=== PATIENT | male | born 1945 | race American Indian/Alaskan Native ===

== ENCOUNTER 2020-02-22 08:24 | Day surgery (SDC) | payer MEDICARE ==
[2020-02-21 09:26] LABS: Hematocrit 40.4 % (35.5-45.6); Mean Corpuscular HGB Conc 35 % (32-34); Mean Corpuscular Volume 93 fl (84-94); Platelet Count 245 K/mm3 (140-440); Red Blood Count 4.36 M/mm3 (3.65-5.03); Red Cell Distribution Width 13.7 % (13.2-15.2)
[2020-02-21 09:41] LABS: Alanine Aminotransferase 14 units/L (7-56); Albumin 3.9 g/dL (3.9-5); BUN/Creatinine Ratio 14; Blood Urea Nitrogen 13 mg/dL (9-20); Calcium 9.9 mg/dL (8.4-10.2); Hemolysis Index 19
[~2020-02-22 08:24] MED LIST: WATER FOR IRRIG STERILE 2000 ML IR ONE; ceFAZolin/STERILE WATER 2 GM/20 ML SYRINGE IV NR
--- NOTE | 2020-02-22 09:02 | Anesthesia Day of Surgery ---
Anesthesia Day of Surgery - Day of Surgery Patient Examined: Yes Patient H&P Reviewed: Yes Patient is NPO: Yes
--- NOTE | 2020-02-22 09:04 | Anesthesia Consultation ---
Anesthesia Consult and Med Hx Date of service: 02/22/20 - Airway Anesthetic Teeth Evaluation: Good, Dentures (Upper), Edentulous (Upper) ROM Head & Neck: Adequate Mental/Hyoid Distance: Adequate Mallampati Class: Class I Intubation Access Assessment: Good - Pre-Operative Health Status ASA Pre-Surgery Classification: ASA3 Proposed Anesthetic Plan: General - Pulmonary Hx Smoking: Yes (STOPPED X 30 YRS) Hx Respiratory Symptoms: No (+2FS) Hx Sleep Apnea: Yes (TALI PRE SCREEN HIGH RISK; Needs sleep study) - Cardiovascular System Hx Hypertension: Yes (2018) Hx Coronary Artery Disease: No (Pt reports negative NST in November 2019) Hx Cardia Arrhythmia: Yes - Central Nervous System Hx Neuromuscular Disorder: Yes (Migraines) Hx Psychiatric Problems: Yes (Anxiety) - Endocrine Hx Liver Disease: No Hx Non-Insulin Dependent Diabetes: No Hx Thyroid Disease: No - Hematic Hx Sickle Cell Disease: No - Other Systems Hx Cancer: No
[2020-02-22] MEDS ORDERED: LACTATED RINGERS 1,000 ML IV SCH (09:11)
[2020-02-22] MEDS ORDERED: HYDROmorphone 1 MG/1 ML INJ IV PRN ×2 (09:16)
[2020-02-22] MEDS ORDERED: ONDANSETRON 4 MG/2 ML INJ IV PRN (09:16)
[2020-02-22] MEDS ORDERED: PHENYLEPHRINE/NS 1,000 MCG/10 ML SYRINGE (OR USE) IV ONE (09:47)
[2020-02-22] MEDS ORDERED: fentaNYL 100 MCG/2 ML INJ ONE ×2 (09:47→10:52)
[2020-02-22] MEDS ORDERED: LIDOCAINE MPF (2%) 20 MG/1 ML VIAL 5 ML ONE (09:47)
[2020-02-22] MEDS ORDERED: GLYCOPYRROLATE 0.4 MG/2 ML INJ ONE (09:47)
[2020-02-22] MEDS ORDERED: ONDANSETRON 4 MG/2 ML INJ ONE (09:47)
[2020-02-22] MEDS ORDERED: dexAMETHasone 20 MG/5 ML VIAL ONE (09:47)
[2020-02-22] MEDS ORDERED: propofoL 200 MG/20 ML VIAL IV ONE (09:48)
[2020-02-22] MEDS ORDERED: MIDAZOLAM 2 MG/2 ML INJ IV SCH (10:00)
[2020-02-22] MEDS ORDERED: WATER FOR IRRIG STERILE 2000 ML IR ONE (10:27)
[2020-02-22] MEDS ORDERED: IOHEXOL 300 MG/ML 50ML IV ONE (10:32)
[2020-02-22] MEDS ORDERED: hydrALAZINE 20 MG/1 ML INJ ONE (11:07)
--- NOTE | 2020-02-22 11:18 | Short Stay Summary ---
Short Stay Documentation Date of service: 02/22/20 - History H&P: obtained from office - Allergies and Medications Current Medications: Allergies No Known Allergies Allergy (Verified 02/15/20 14:58) Home Medications Medication Instructions Recorded Confirmed Last Taken Type ALPRAZolam [Xanax TAB] 0.25 mg PO QHS PRN 02/15/20 02/15/20 Unknown History Benazepril HCl [Lotensin] 30 mg PO DAILY 02/15/20 02/15/20 Unknown History Lovastatin [Altoprev] 40 mg PO DAILY 02/15/20 02/15/20 Unknown History Naproxen Sodium [Aleve] 220 mg PO PRN PRN 02/15/20 02/15/20 Unknown History Tamsulosin [Flomax] 0.4 mg PO QDAY 02/15/20 02/15/20 Unknown History Active Medications Cefazolin Sodium (Ancef/Sterile Water 2 Gm/20 Ml) 2 gm IV PREOP NR Stop: 02/22/20 23:59 Hydromorphone HCl (Dilaudid) 0.25 mg IV Q10MIN PRN PRN Reason: Pain, Moderate (4-6) Stop: 02/22/20 23:00 Hydromorphone HCl (Dilaudid) 0.5 mg IV Q10MIN PRN PRN Reason: Pain , Severe (7-10) Stop: 02/22/20 23:00 Lactated Ringer's (Lactated Ringers) 1,000 mls @ 100 mls/hr IV DIRECT JEFF Last Admin: 02/22/20 09:30 Dose: 100 mls/hr Documented by: Midazolam HCl (Versed) 2 mg IV ONCE JEFF Stop: 02/22/20 12:00 Last Admin: 02/22/20 09:31 Dose: 2 mg Documented by: Ondansetron HCl (Zofran) 4 mg IV ONCE PRN PRN Reason: Nausea And Vomiting Stop: 02/22/20 23:00 - Brief post op/procedure progress note Date of procedure: 02/22/20 Pre-op diagnosis: baldder [id number] Post-op diagnosis: other (rt ureteral stone, ureterocele) Procedure: cysto, laser stone, rt ureteroscopy Anesthesia: GETA Surgeon: LIAM NARANJO Estimated blood loss: minimal Condition: stable - Hospital course Hospital course: give stone to pt, bactrim & norco - Disposition Condition at discharge: Stable Disposition: DC-01 TO HOME OR SELFCARE Short Stay Discharge Plan Follow up with: EDIL HONG MD [Primary Care Provider] - 7 Days
[2020-02-22] MEDS ORDERED: MEPERIDINE 25 MG/1 ML INJ ONE (11:31)
[2020-02-22] MEDS ORDERED: MEPERIDINE 25 MG/1 ML INJ IV PRN (11:34)
--- NOTE | 2020-02-22 13:38 | Operative Report ---
PREOPERATIVE DIAGNOSIS: 2 cm bladder stone. POSTOPERATIVE DIAGNOSES: Right ureteral stone, right ureterocele. PROCEDURE: Cystoscopy, left retrograde pyelogram, right ureteral meatotomy, stone manipulation, right ureteroscopy, attempted stent, holmium laser lithotripsy of bladder stone. SURGEON: Will Bailey MD ANESTHESIA: General. ESTIMATED BLOOD LOSS: Minimal. FLUIDS: Crystalloid. COMPLICATIONS: No complications. INDICATIONS: This patient is a 74-year-old gentleman who presented to the office with hematuria, pelvic pain. CT abdomen and pelvis revealed what appeared to be a 2 cm bladder stone. We discussed options, he agreed to proceed with surgical intervention. DESCRIPTION OF PROCEDURE: The patient was taken to the operative suite, placed in a supine position. After adequate general anesthesia, placed in a dorsal lithotomy position, prepped and draped in a sterile fashion. Pancystourethroscopy was performed with 22-Armenian Storz cystoscope, no urethral abnormalities. His prostate displayed mild trilobar obstruction bladder, obvious stone in the right ureter and ureterocele, left ureter in normal position. Left retrograde pyelogram was obtained with an 8-Armenian Rubicon catheter and 8 mL of contrast. No filling defects or obstruction. Next, using meatotomy scissors, the ureteral orifice was excised at the 12 o'clock position. Stone was manipulated out into the bladder. Wire was placed followed by rigid ureteroscopy. Ureter was diffusely dilated, went all the way up to the kidney. No stone could be appreciated. Therefore, I did not think a stent was needed. Next, using a 500 micron holmium laser, lithotripsy of the stone was used to broken up into fragments that could be extracted with alligator graspers. Fair amount of edema was created. At that point, I elected to leave a ____ 3-way 20-Armenian catheter plug the side port. Rectal exam was benign. The patient was extubated and taken to recovery room. He will go home on Bactrim and [place]. JOB# [id number] [facility]
[2020-02-22 14:09] VITALS: BP 129/53
--- NOTE | 2020-02-22 18:13 | Post Anesthesia Evaluation ---
- Post Anesthesia Evaluation Patient Participated: Yes Airway Patent: Yes Stable Respiratory Function: Yes Nausea/Vomiting: No Temp > 96.8F: Yes Pain Manageable: Yes Adequeate Hydration: Yes Anesthesia Complications: No Block Receding Appropriately: Not Applicable Patient on Ventilator: No
--- NOTE | 2020-02-23 14:01 | Fluoroscopy Report ---
INTRAOPERATIVE FLUOROSCOPY: RETROGRADE UROGRAPHY INDICATION: RT URETERAL STONE. TECHNIQUE: Intraoperative spot images were obtained during the procedure. FINDINGS: There was injection of the left ureter. Short segment narrowing of the distal left ureter labeled as image 10 could be due to peristalsis, correlate clinically. No filling defects or left hydronephrosis . Image #12 shows scope in the right ureter with a wire extending into the right renal collecting sys tem. No contrast is seen in the right renal collecting system. Please see procedure note for details. Fluoroscopy Time: 7. Fluoroscopy Images: [id number]). Signer Name: Luis Valentino MD Signed: 02/23/2020 1:56 PM Workstation Name: [id number]
== END 2020-02-22 08:25 | disposition home or self-care (01) ==
LOC: OR 08:24
PROVIDERS: ATTEND Urology
DX: N21.0 Calculus in bladder (principal); Z20.828 Contact with and (suspected) exposure to other viral communicable diseases; N28.89 Other specified disorders of kidney and ureter; N20.1 Calculus of ureter; E78.00 Pure hypercholesterolemia, unspecified; I10 Essential (primary) hypertension; G47.30 Sleep apnea, unspecified; F41.9 Anxiety disorder, unspecified; Z79.899 Other long term (current) drug therapy; Z87.891 Personal history of nicotine dependence
CPT/HCPCS: 36415; 52290; 52317; 74420; 80053; 85027; A4217; C1758; J0360; J0690; J1100; J2175; J2250; J2370; J2405; J2704; J3010; Q9967; U0003; C2617